=== PATIENT | male | born 1970 | race Caucasian/White ===

== ENCOUNTER 2017-11-18 19:28 | Inpatient (IN) | payer SELFPAY ==
[2017-11-18] MEDS ORDERED: Lorazepam 2 MG/ML VIAL ONE ×3 (19:38→22:33)
[2017-11-18 19:58] LABS: #Neutrophils 12.4 thou/uL (1.40-6.50); %Basophils 0.1 % (0.0-1.0); %Eosinophils 0.3 % (0.0-10.0); %Lymphocytes 6.8 % (21.0-51.0); %Monocytes 7.2 % (0.0-10.0); %Neutrophils 85.7 % (42.0-75.0); Hemoglobin 13.8 g/dL (14.0-18.0); Mean Corpuscular HGB CONC 35.2 g/dL (32.0-36.0); Mean Corpuscular Hemoglobin 37.1 pg (27.0-31.0); Platelet Count 207 thou/uL (130-400); RBC Distribution Width 14.1 % (11.5-14.5); Red Blood Cell (RBC) Count 3.71 mill/uL (4.70-6.10); White Blood Cell (WBC) Count 14.4 thou/uL (4.8-10.8)
[2017-11-18] MEDS ORDERED: Multivitamins, Adult 10 ML, Thiamine HCl 100 MG, Folic Acid 1 MG in Dextrose 5 %-0.45 %... IV SCH (20:15)
[2017-11-18 20:22] LABS: ALT (SGPT) 57 U/L (8-55); AST (SGOT) 151 U/L (5-34); Alkaline Phosphatase 206 U/L (40-150); Anion Gap 30 mmol/L (10-20); BUN (Urea Nitrogen) 9 mg/dL (8.9-20.6); Bilirubin, Total 4.5 mg/dL (0.2-1.2); Calc. Creatinine Clearance 0 mL/min (70-130); Carbon Dioxide 17 mmol/L (22-29); Chloride 90 mmol/L (98-107); Estimated GFR-MDRD 56; Globulin 3.4 g/dL (2.4-3.5); Glucose 120 mg/dL (70-105); Magnesium 1.1 mg/dL (1.6-2.6); Protein, Total 6.4 g/dL (6.0-8.3); Sodium 134 mmol/L (136-145)
--- NOTE | 2017-11-18 20:29 | CT ---
CT BRAIN WITHOUT CONTRAST: 11/18/17 HISTORY: Seizure. COMPARISON: None. FINDINGS: No acute territorial infarct or hemorrhage. No midline shift or mass effect. Ventricular size and ext ra-axial CSF spaces are normal. Calvarium is intact. The paranasal sinuses and mastoids are clear. IMPRESSION: No acute intracranial abnormality. POS: [facility]
[2017-11-18 20:31] LABS: Potassium 2.8 mmol/L (3.5-5.1)
[2017-11-18] MEDS ORDERED: Potassium Chloride 20 MEQ TAB ONE (21:08)
[2017-11-18] MEDS ORDERED: Magnesium Sulfate 2 GM/100 ML BAG ONE (21:39)
--- NOTE | 2017-11-18 22:50 | PDOC.FPRHP ---
- History of Present Illness Chief Complaint: seizures, alcohol wd, DT History of Present Illness: 47 yo M with h/o alcoholism presented to ED after suffering 2 seizures today. The first occurred early this AM and the next occurred around 6 pm. Both episodes involved shaking of the UE and LOC for approx 2 minutes. He reports feeling dizzy and lightheaded after the episodes. Denies bowel or bladder incontinence. He has been drinking approx 1 pint of alcohol/day for the last 5 years. Prior to that he reports his alcohol consumption varies depending on if he is upset or feeling down. He has been drinking since the age of 17. He tried to quit approx 5 years ago and suffered seizures at that time as well. When seen in the ED he had been given ativan IV 4mg and at that time denied feeling tremulous, nauseated, anxious, agitated, diaphoretic. He also denied any recent cp, sob. Otherwise no complaints aside from wanting to go home. Per nurse, family reported that he was previously given librium but was drinking the entire time h was taking the medication. Pt reports his last drink was wednesday. ED Course: 4mg ativan, 2gm mag sulfate, 40meq potassium, banana bag - Allergies/Adverse Reactions Allergies Allergy/AdvReac Type Severity Reaction Status Date / Time No Known Allergies Allergy Unverified 11/18/17 20:02 - History PMHx: Alcohol abuse PSHx: Left ankle FHx: NA Social: 1 pint per day drinking history, non smoker, denies drug use - Review of Systems General: denies: fever/chills, weight/appetite/sleep changes, night sweats, fatigue Eyes: denies: eye pain, vision changes ENT: denies: nasal congestion, rhinorrhea Respiratory: denies: cough, congestion, shortness of breath Cardiovascular: denies: chest pain, palpitation, edema Gastrointestinal: denies: nausea, vomiting, diarrhea, constipation, abdominal pain Genitourinary: denies: incontinence, polyuria Skin: denies: rashes, lesions, jaundice Musculoskeletal: denies: pain, swelling, arthritis/arthralgias Neurological: reports: seizure. denies: numbness, syncope, weakness - Vital signs BP: 100/71 HR: 120 RR: 16 Tmax: 98.2 Pox: 97% on RA Wt: 93Kg - Physical Exam Constitutional: NAD, awake, alert and oriented HEENT: normocephalic and atraumatic, PERRLA, EOMI, no scleral icterus, grossly normal hearing, oropharynx clear, other (dry mucus membranes) Neck: supple, trachea midline, no LAD, no JVD, no thyromegaly Chest: no-tender to palpation Heart: normal S1/S2, no murmurs/rubs/gallops, pulses present, no edema, other ( tachycardic) Lungs: CTAB, no respiratory distress, good air movement, no wheezing, no retractions Abdomen: soft, non-tender, bowel sounds present, no masses/distention Musculoskeletal: normal structure, normal tone, ROM grossly normal Neurological: no focal deficit, CN II-XII intact, normal sensation, DTRs 2+ Skin: no rash/lesions, capillary refill <2 seconds, no jaundice Heme/Lymphatic: no unusual bruising or bleeding, no petechia FMR H&P: Results - Labs Result Diagrams: 11/19/17 06:33 11/19/17 01:08 Lab results: WBC 14.4 thou/uL (4.8-10.8) H 11/18/17 19:51 Hgb 13.8 g/dL (14.0-18.0) L 11/18/17 19:51 Hct 39.1 % (42.0-52.0) L 11/18/17 19:51 MCV 105.0 fl (80.0-94.0) H 11/18/17 19:51 Plt Count 207 thou/uL (130-400) 11/18/17 19:51 Neutrophils % 85.7 % (42.0-75.0) H 11/18/17 19:51 Sodium 134 mmol/L (136-145) L 11/18/17 19:51 Potassium 2.8 mmol/L (3.5-5.1) L* 11/18/17 19:51 Chloride 90 mmol/L (98-107) L 11/18/17 19:51 Carbon Dioxide 17 mmol/L (22-29) L 11/18/17 19:51 BUN 9 mg/dL (8.9-20.6) 11/18/17 19:51 Creatinine 1.36 mg/dL (0.6-1.3) H 11/18/17 19:51 Glucose 120 mg/dL (70-105) H 11/18/17 19:51 Calcium 7.0 mg/dL (7.8-10.44) L 11/18/17 19:51 Total Bilirubin 4.5 mg/dL (0.2-1.2) H 11/18/17 19:51 AST 151 U/L (5-34) H 11/18/17 19:51 ALT 57 U/L (8-55) H 11/18/17 19:51 Alkaline Phosphatase 206 U/L (40-150) H 11/18/17 19:51 Serum Total Protein 6.4 g/dL (6.0-8.3) 11/18/17 19:51 Albumin 3.0 g/dL (3.5-5.0) L 11/18/17 19:51 - EKG Interpretation EKG: sinus tachycardia, normal axis, No ST/T wave changes - Radiology Interpretation CT scan - head Status: report reviewed by me (No acute intracranial process) FMR H&P: A/P - Problem List (1) Seizure Current Visit: Yes Status: Acute Code(s): R56.9 - UNSPECIFIED CONVULSIONS (2) Alcohol withdrawal Current Visit: Yes Status: Acute Code(s): F10.239 - ALCOHOL DEPENDENCE WITH WITHDRAWAL, UNSPECIFIED (3) Hypokalemia Current Visit: Yes Status: Acute Code(s): E87.6 - HYPOKALEMIA (4) Hypomagnesemia Current Visit: Yes Status: Acute Code(s): E83.42 - HYPOMAGNESEMIA (5) Transaminitis Current Visit: Yes Status: Acute Code(s): R74.0 - NONSPEC ELEV OF LEVELS OF TRANSAMNS & LACTIC ACID DEHYDRGNSE (6) Alcohol abuse Current Visit: Yes Status: Acute Code(s): F10.10 - ALCOHOL ABUSE, UNCOMPLICATED - Plan 1) Seizure: Admit IMCU. Likely related to alcohol withdraw, sttart on ASE protocol and medication. s/s controlled with ativan in ED. Banana bag. IV NS @ 150. NPO meds with sips. 2) Alcohol withdraw: ASE protocol, benzos prn. Banana bag and NS @ 150mls/hr. Banana bag q24hr 3) Transamainitis: likely 2/2 alcohol abuse, trend. 4) Elyte deficiencies: Pt has been placed on ccu replacement protocl and will replenish as indicated. Check phos and replace as needed. 5)Alcohol abuse: executive assistant to general counsel on cessation. Banana bag q24hrs. NS @ 150 mls/hr. 6) PPX, SCDs and pepcid for dvt and GI ppx, respectively 7) Code status: pt wishes to be full code Disposition/LOS: guarded, >/= 2 days FMR H&P: Upper Level - Pertinent history 47 yo CM with PMHx of alcohol abuse presented to ED via EMS following witnessed seizure-like activity at a baseball game. He endorses his L arm locking up and then noticed his arm shaking. Witnessed by family but not present. Pt is currently difficult to arouse following Ativan, so majority of history comes from ED record and other providers. He was apparently told that the episode consisted of his upper body shaking and then he appeared post-ictal. He remembers getting loaded into the ambulance. He is heavy alcohol user (at least 1 pint fireball whiskey per day but may be grossly underestimating) with hx withdrawal seizure x1. He had gone since Wednesday morning (4 days) without a drink. Last binge included some beers and shots. Denies hallucinations, N/V, abdominal pain. No odd behaviors known. In ED, pt endorsed feeling much improved following benzo administration. Due to electrolyte abnormalities 2/2 alcohol abuse, pt was admitted to IMCU for closer monitoring. - Pertinent findings Gen: NAD, sleepy and difficult to arouse following Ativan HEENT: MMM CV: RRR, no m/r/g Lungs: CTAB, no increased WOB Abd: NT/ND Ext: no edema Neuro: not cooperating with exam; MAEW, no gross focal deficits - Plan Date/Time: 11/18/17 1355 1. Alcohol withdrawal seizure. Most likely etiology although timeline of last drink (4 days ago) is a little longer than typical for this. Pt states last withdrawal seizure occurred 4 days after last drink as well. Pt responding to benzos so continue this with symptom based administration using ASE protocol. Check phosphorus as critical low levels can precipitate seizures as well. Admit to IMCU for closer monitoring as well as electrolyte abnormalities. 2. Acute alcohol withdrawal. See above. Pt has multiple severe electrolyte derangements from chronic alcohol abuse. Monitoring magnesium, phosphate, potassium, calcium and replacing as needed. When more awake, discuss pts goals concerning abstinence from alcohol. Does not have PCP. Thiamine and multivitamin to supplement folate and pyridoxine. IV fluids. Repeat CMP in AM. 3. Alcoholic hepatitis, suspected. Chronic alcohol abuse. 3:1 AST/ALT pattern. Elevated bilirubin. Check RUQ U/S to assess for cirrhosis or obstructive causes. Check PT/INR. Starting workup of secondary transaminitis causes (viral hepatitis serologies, hemochromatosis screen). More hx when pt is more awake and ready to discuss his overall prognosis if behaviors do not change. Repeat CMP in AM. 4. MYKEL. Likely 2/2 dehydration from decreased water intake and alcohol abuse. No baseline known. Continue IV fluids and recheck BMP in AM. 5. Hypokalemia. Replacing per CCU protocol. Repeating frequently until improves. 2/2 alcohol abuse. 6. Hypomagnesemia. See above. Replace per protocol. Check phosphorus as potentially low as well. 7. Hypocalcemia. Will work to replete magnesium to assist with bringing up calcium. With hypoalbumin, initial Ca corrects to 7.8 so no current need for IV calcium gluconate as appears asymptomatic. Will add oral calcitriol now which should start to improve levels within hours. Repeat in AM. 7. Macrocytosis. Likely 2/2 alcohol abuse. Vitamin replacement. Hgb appropriate so hold on lab evaluation of secondary causes. I, Yogesh Kennedy, have evaluated this patient and agree with findings/plan as outlined by financial analyst intern resident. Pertinent changes/additions are listed here. Attending Addendum - Attending Addendum Date/Time: 11/19/17 6180 I personally evaluated the patient and discussed the management with Dr. Lai on 11/18/17 I agree with the History, Examination, Assessment and Plan documented above with any addition or exceptions noted below- Briefly this is a 47 year old male with no significant PMH except alcohol abuse presented c/o seizure x2. Reportedly left arm locked up and had some shaking and then LOC. No loss of bladder or bowel. Last drink was Wednesday. Reports that he had seizure previously when he stopped drinking. PMH/PSH/Meds/SH/All/ROS reviwed and agree with resident's documentation. Afebrile VSS Exam repeated by me and agree with resident's findings. Labs: WBC=14.4 Hgb=13.8 Hct=39.1 Eew=733 TYS=305 bSi=938 K =2.8 BUN=90 Cr=1.36 LLH=402 ALT=57 EtOh=0 CT brain- no acute abnormalities. A/P : 1) Seizure, most likely alcohol withdrawal seizure- continue seizure precautions, 2) Alcohol withdrawal- improved with ativan; continue ASE protocol. 3) MYKEL most likely secondary to dehydration- continue IVF. 4) Hypokalemia- replace potassium
[2017-11-19] MEDS ORDERED: Ondansetron HCl/PF 4 MG/2 ML Vial IVP PRN (00:13)
[2017-11-19] MEDS ORDERED: Lorazepam 2 MG/ML VIAL SLOW IVP PRN (00:13)
[2017-11-19] MEDS ORDERED: Ondansetron ODT 4 MG TAB PO PRN (00:13)
[2017-11-19] MEDS ORDERED: CCU Electrolyte Replacement 1 EACH FS SCH (00:13)
[2017-11-19] MEDS ORDERED: Lactated Ringer's 1,000 ML IV SCH (00:15)
[2017-11-19] MEDS ORDERED: CCU ELECTROLYTE REPLACEMENT PROTOCOL FS PRN (00:16)
[2017-11-19] MEDS ORDERED: Potassium Phosphate 15 MMOL in Sodium Chloride 0.9% 250 ML 250 ML IV PRN (00:16)
[2017-11-19] MEDS ORDERED: Potassium Chloride 40 MEQ in Sodium Chloride 0.9% 250 ML 250 ML IVPB PRN (00:16)
[2017-11-19] MEDS ORDERED: Magnesium Oxide 400 MG TAB PO PRN ×2 (00:16)
[2017-11-19] MEDS ORDERED: Magnesium 2 GM/NS 0.9% 100 ML 2 GM in Premix Bag 1 BAG IVPB PRN (00:16)
[2017-11-19] MEDS ORDERED: Potassium Chloride 40 MEQ in Premix Bag 1 BAG IVPB PRN (00:16)
[2017-11-19] MEDS ORDERED: Potassium Phosphate 9 MMOL in Sodium Chloride 0.9% 100 ML IVPB PRN (00:16)
[2017-11-19] MEDS ORDERED: Potassium Phosphate 12 MMOL in Sodium Chloride 0.9% 250 ML 250 ML IV PRN (00:16)
[2017-11-19] MEDS ORDERED: Potassium Chloride 20 MEQ TAB PO PRN (00:16)
[2017-11-19] MEDS ORDERED: Diazepam 5 MG TAB PO PRN (00:19)
[2017-11-19] MEDS: Diazepam 5 MG TAB PO SCH ×2 (00:35→02:22)
[2017-11-19] MEDS: Sodium Chloride 0.9% 1,000 ML IV SCH ×2 (00:35→10:45)
[2017-11-19 01:38] VITALS: BMI 30.4
[2017-11-19 01:38] LABS: Anion Gap 13 mmol/L (10-20); BUN (Urea Nitrogen) 8 mg/dL (8.9-20.6); Calc. Creatinine Clearance 145 mL/min (70-130); Calcium 6.5 mg/dL (7.8-10.44); Carbon Dioxide 30 mmol/L (22-29); Chloride 94 mmol/L (98-107); Estimated GFR-MDRD Greater than 90; Glucose 101 mg/dL (70-105); Sodium 134 mmol/L (136-145)
[2017-11-19 01:58] LABS: Potassium 2.5 mmol/L (3.5-5.1)
[2017-11-19 03:48] LABS: #Lymphocytes 1.3 thou/uL (1.20-3.40); #Monocytes 0.8 thou/uL (0.11-0.59); %Basophils 0.2 % (0.0-1.0); %Eosinophils 0.4 % (0.0-10.0); %Lymphocytes 11.6 % (21.0-51.0); %Monocytes 6.9 % (0.0-10.0); %Neutrophils 80.9 % (42.0-75.0); Hemoglobin 12.3 g/dL (14.0-18.0); Mean Corpuscular Hemoglobin 36.7 pg (27.0-31.0); Mean Platelet Volume 8.3 fL (7.4-10.4); Platelet Count 136 thou/uL (130-400); RBC Distribution Width 14.1 % (11.5-14.5); Red Blood Cell (RBC) Count 3.35 mill/uL (4.70-6.10); White Blood Cell (WBC) Count 11.2 thou/uL (4.8-10.8)
[2017-11-19] MEDS ORDERED: Calcitriol 0.25 MCG CAP PO SCH ×2 (05:30→21:00)
[2017-11-19 06:51] LABS: #Lymphocytes 1.3 thou/uL (1.20-3.40); #Monocytes 0.6 thou/uL (0.11-0.59); #Neutrophils 5.4 thou/uL (1.40-6.50); %Basophils 0.4 % (0.0-1.0); %Eosinophils 0.5 % (0.0-10.0); %Lymphocytes 18.3 % (21.0-51.0); %Monocytes 7.7 % (0.0-10.0); %Neutrophils 73.2 % (42.0-75.0); Hemoglobin 12.2 g/dL (14.0-18.0); Mean Corpuscular HGB CONC 34.1 g/dL (32.0-36.0); Mean Corpuscular Hemoglobin 36.3 pg (27.0-31.0); Mean Platelet Volume 8.1 fL (7.4-10.4); Platelet Count 129 thou/uL (130-400); RBC Distribution Width 14.1 % (11.5-14.5); Red Blood Cell (RBC) Count 3.36 mill/uL (4.70-6.10); White Blood Cell (WBC) Count 7.4 thou/uL (4.8-10.8)
[2017-11-19 06:58] LABS: INR-International Normal Ratio 1.2; Prothrombin Time 14.9 SEC (12.0-14.7)
[2017-11-19 07:01] LABS: Iron 173 ug/dL (65-175); Iron Binding Capacity, Total 225 mcg/dL (261-462)
[2017-11-19 07:02] LABS: ALT (SGPT) 45 U/L (8-55); AST (SGOT) 116 U/L (5-34); Albumin 2.8 g/dL (3.5-5.0); Alkaline Phosphatase 171 U/L (40-150); Anion Gap 8 mmol/L (10-20); BUN (Urea Nitrogen) 8 mg/dL (8.9-20.6); Bilirubin, Total 4.4 mg/dL (0.2-1.2); Calc. Creatinine Clearance 160 mL/min (70-130); Calcium 6.6 mg/dL (7.8-10.44); Carbon Dioxide 32 mmol/L (22-29); Chloride 99 mmol/L (98-107); Estimated GFR-MDRD Greater than 90; Globulin 2.8 g/dL (2.4-3.5); Glucose 87 mg/dL (70-105); Magnesium 1.9 mg/dL (1.6-2.6); Phosphorus 2.4 mg/dL (2.3-4.7); Potassium 3.1 mmol/L (3.5-5.1); Protein, Total 5.6 g/dL (6.0-8.3); Sodium 136 mmol/L (136-145)
[2017-11-19 07:18] LABS: Ferritin 391.98 ng/mL (22-322)
[2017-11-19 07:31] LABS: HBSAB Concentration 0.58 mIU/mL; HBSAg Index 0.16 S/CO (0-0.99); Hep B Surf AB Non-Reactive (NonReactive); Hep B Surf Ag Non-Reactive S/CO (NonReactive); Hep C IgG Ab Non-Reactive (NonReactive)
[2017-11-19] MEDS ORDERED: Multivitamin W/ Minerals 1 TAB PO SCH (09:00)
[2017-11-19] MEDS ORDERED: Famotidine/PF 20 mg/2ml Vial SLOW IVP SCH (09:00)
[2017-11-19] MEDS ORDERED: Folic Acid 1 MG TAB PO SCH (09:00)
--- NOTE | 2017-11-19 09:19 | ULT ---
ULTRASOUND ABDOMEN: HISTORY: Abnormal LFTs, increased bilirubin, alcohol abuse, and transaminitis. FINDINGS: The patient is post cholecystectomy. The pancreas and left lobe of the liver are obscured by bowel g as. The spleen measures 13.2 cm in length. The right lobe of the liver is normal. The right kidney measures 10.6 cm in length and the left kidney measures 13 cm in length. No hydronephrosis is seen on either side. There is a 2 cm hypoechoic lesion in the inferior pole of the left kidney. No free fluid is seen. The visualized portions of the aorta and IVC are unremarkable. The common duct measu res 4 mm in diameter. IMPRESSION: 1. Status post cholecystectomy. 2. Borderline splenomegaly. 3. Probable 2 cm cyst in the inferior pole of the left kidney. A followup ultrasound of the kidneys should be obtained in 3 months. POS: [facility]
--- NOTE | 2017-11-19 09:25 | PDOC.FM ---
- Subjective Subjective: Patient is feeling "good and tired" this morning. He reports this episode of seizure to have occurred about same timing as last time he was "battling sobriety." He states he has 7 little league games to [place]onas tomorrow and will leave the hospital if not discharged by the evening. He denies tactile or visual hallucinations. Denies tremors. He denies a history of seizures outside of the last time he was withdrawing 4 years ago. He is hoping to quit drinking. He is struggling after a divorce. Currently lives with mom and step dad. - Objective MAR Reviewed: Yes Vital Signs & Weight: Vital Signs (12 hours) Temp Pulse Resp BP Pulse Ox 11/19/17 08:00 97.6 F 111 H 18 96 11/19/17 07:42 97.6 F 111 H 18 116/73 94 L 11/19/17 03:58 98.7 F 122 H 21 H 95/67 99 I&O: 11/18/17 11/19/17 11/20/17 06:59 06:59 06:59 Intake Total 982 Output Total 175 Balance 807 Result Diagrams: 11/19/17 06:33 11/19/17 06:34 Additional Labs: Laboratory Tests 11/19/17 11/19/17 11/19/17 06:34 06:34 06:34 Phosphorus 2.4 2.2 L TIBC % Saturation Ferritin 391.98 H Hep Bs Antigen Non-Reactive Hep Bs Antibody Non-Reactive Hep Bs Antibody Index 0.58 Hepatitis C Antibody Non-Reactive 11/19/17 06:35 Phosphorus TIBC 225 L % Saturation 77 H Ferritin Hep Bs Antigen Hep Bs Antibody Hep Bs Antibody Index Hepatitis C Antibody <Linda Albarran - Last Filed: 11/19/17 09:46> - Objective Vital Signs & Weight: Vital Signs (12 hours) Temp Pulse Resp BP Pulse Ox 11/19/17 08:00 97.6 F 111 H 18 96 11/19/17 07:42 97.6 F 111 H 18 116/73 94 L 11/19/17 03:58 98.7 F 122 H 21 H 95/67 99 I&O: 11/18/17 11/19/17 11/20/17 06:59 06:59 06:59 Intake Total 982 Output Total 175 Balance 807 Result Diagrams: 11/19/17 06:33 11/19/17 06:34 <Cal Melgar - Last Filed: 11/19/17 10:31> Phys Exam - Physical Examination Constitutional: NAD HEENT: moist MMs Respiratory: no wheezing, no rales, no rhonchi, clear to auscultation bilateral Cardiovascular: RRR, no significant murmur Gastrointestinal: soft, non-tender, positive bowel sounds Musculoskeletal: no edema Neurological: non-focal, moves all 4 limbs Psychiatric: normal affect, A&O x 3 <Linda Albarran - Last Filed: 11/19/17 09:46> Dx/Plan (1) Alcohol withdrawal Code(s): F10.239 - ALCOHOL DEPENDENCE WITH WITHDRAWAL, UNSPECIFIED Status: Acute (2) Alcohol abuse Code(s): F10.10 - ALCOHOL ABUSE, UNCOMPLICATED Status: Chronic (3) Hypokalemia Code(s): E87.6 - HYPOKALEMIA Status: Acute (4) Hypomagnesemia Code(s): E83.42 - HYPOMAGNESEMIA Status: Acute (5) Seizure Code(s): R56.9 - UNSPECIFIED CONVULSIONS Status: Acute (6) Transaminitis Code(s): R74.0 - NONSPEC ELEV OF LEVELS OF TRANSAMNS & LACTIC ACID DEHYDRGNSE Status: Acute - Plan Plan: 47 yr old male with history of alcohol abuse who presented after a seizure x 2. alcohol withdrawal seizure -improved, no further seizure, no DT symptoms -5 days since last drink -multiple electrolyte abnormalities which seem to be improving. -high risk for recurrent alcohol use so do not recommend a benzo taper. transaminitis likely 2/2 alcoholic hepatitis -neg hep b, c -abdominal sono without liver, pancreas abnormality -s/p cholecystectomy -alcohol cessation recommended hypomagnesemia -replete hypokalemia -replete hypophosphorus -replete hypocalcemia -corects to 7.5 alcohol abuse -recommend cessation and counseling provided <Linda Albarran - Last Filed: 11/19/17 09:46> Attending Addendum - Attending Addendum Date/Time: 11/19/17 1019 I personally evaluated the patient and discussed the management with Dr. Albarran. I agree with the History, Examination, Assessment and Plan documented above with any addition or exceptions noted below. Pt. without complaints, feels returned to baseline. Self-discontinued on Wednesday for intended lifestyle change/abstinence. He's determined to leave regardless. He claims he has support resources in . [place] (home) for ETOH recovery. Extensive discussion of ethanolism, consequences and current condition with warnings on continued use. Will d/c home with Ativan taper ( strongly stressed no concurrent ETOH use or driving while concluding taper. <Cal Melgar - Last Filed: 11/19/17 10:31>
[2017-11-19] MEDS ORDERED: Lorazepam 1 MG TAB PO SCH (10:30)
[2017-11-19 11:16] VITALS: BP 133/93; TEMP 98.6
--- NOTE | 2017-11-19 13:59 | CON ---
DATE OF CONSULTATION: 11/19/2017 REASON FOR CONSULTATION: [facility] [place]. HISTORY OF PRESENT ILLNESS: A 47-year-old male who was admitted yesterday with seizures attributable to alcohol withdrawal. He is currently sleeping deeply. I did not awaken him, so what I have is ob tained from reading the resident's notes. Apparently, he had 2 seizures yesterday. He had been cons uming large amounts of alcohol. Apparently, the patient has been using Librium at home in addition t o the alcohol. My assumption that he has probably been seen at another facility recently to get that Librium prescription. PAST MEDICAL HISTORY: Alcohol abuse. PAST SURGICAL HISTORY: Ankle surgery. FAMILY MEDICAL HISTORY: Unremarkable. SOCIAL HISTORY: Drinks a pint per day. Does not smoke, does not use illicit drugs. REVIEW OF SYSTEMS: Otherwise, negative. PHYSICAL EXAMINATION: VITAL SIGNS: Temperature 97.6, pulse 111, respirations 18, O2 sat 96% on room air. GENERAL: He is sleeping deeply. HEENT: Unremarkable. NECK: No JVD. LUNGS: Clear. CARDIOVASCULAR: S1, S2 tachycardic. ABDOMEN: Soft, nontender. Liver not palpable. EXTREMITIES: No clubbing, cyanosis, or edema. LABORATORY DATA: Sodium 136, potassium 3.1, chloride 99, CO2 of 32, BUN 8, creatinine 0.7, glucose 8 7, calcium 6.6, phosphorus 2.2, magnesium 1.9. White blood count 7.4, hematocrit 35.8, platelet coun t 129. INR 1.2. ASSESSMENT: 1. Seizures, probably secondary to alcohol use/alcohol withdrawal. 2. Alcohol abuse. PLAN: Reviewed orders, agree with the current management, hydration, p.r.n. benzodiazepines and thia mine. We will follow with you.
[2017-11-20] MEDS ORDERED: Diazepam 5 MG TAB PO PRN (04:00)
[2017-11-20] MEDS ORDERED: Magnesium Oxide 400 MG TAB PO SCH (09:00)
--- NOTE | 2017-11-20 17:22 | EKG ---
Test Reason : Blood Pressure : / mmHG Vent. Rate : 132 BPM Atrial Rate : 132 BPM P-R Int : 000 ms QRS Dur : 086 ms QT Int : 398 ms P-R-T Axes : 000 025 006 degrees QTc Int : 589 ms Sinus tachycardia Nonspecific ST and T wave abnormality Abnormal ECG Long QTc Confirmed by MIS JETT ([id number]), metropolitan editor DANNIE SALCIDO ([id number]) on 11/20/2017 5:21:56 PM Referred By: Confirmed By:MIS JETT
== END 2017-11-19 14:55 | disposition left against medical advice (07) | DRG 894 ==
LOC: ERS 19:28 → EDBD 19:28 → IMCU/EMU 11-19 00:27
PROVIDERS: ADMIT Family Medicine; ATTEND Family Medicine
DX: F10.239 Alcohol dependence with withdrawal, unspecified (principal); E87.6 Hypokalemia; E83.42 Hypomagnesemia; R56.9 Unspecified convulsions; R74.0 Nonspecific elevation of levels of transaminase and lactic acid dehydrogenase [LDH]; K70.10 Alcoholic hepatitis without ascites; E83.39 Other disorders of phosphorus metabolism; E83.51 Hypocalcemia; Z90.49 Acquired absence of other specified parts of digestive tract
CPT/HCPCS: 36415; 36416; 70450; 76700; 80048; 80053; 80307; 82728; 83540; 83550; 83735; 83930; 84100; 85025; 85610; 86706; 86803; 87340; 93005; J2060; J3411; J3475; J7042; J7050; S0028